=== PATIENT | male | born 2000 ===

== ENCOUNTER 2021-12-11 17:34 | Emergency (ER) | payer OTHER, SELFPAY ==
[2021-12-11 17:42] VITALS: BP 142/83; PULSE 102; RESP 16; TEMP 36.8; O2SAT 100; BMI 29.8
--- NOTE | 2021-12-11 18:27 | DI.RAD.S_ITS ---
PROCEDURE: XR CHEST 1V INDICATIONS: left sided chest pain TECHNIQUE: One view of the chest was acquired. COMPARISON: None. FINDINGS: Surgical changes and devices: None. Lungs and pleura: Lungs are clear. No pleural effusions or pneumothorax. Mediastinum: Mediastinal contours appear normal. Heart size is normal. Bones and chest wall: No suspicious bony lesions. Overlying soft tissues appear unremarkable. IMPRESSION: No acute cardiopulmonary disease. Dictated by: Elijah Moreno M.D. on 12/11/2021 at 19:00 Approved by: Elijah Moreno M.D. on 12/11/2021 at 19:00
--- NOTE | 2021-12-11 18:30 | ED.HA ---
HPI - Headache <Lilibeth Calderon [facility] - Last Filed: 12/11/21 20:23> General Chief Complaint: Headache Stated Complaint: chets pain, headache all day Time Seen by Provider: 12/11/21 18:16 Mode of arrival: Ambulatory History of Present Illness HPI Narrative: This is a 21-year-old male without any significant medical history who presents to the emergency department complaining of left-sided chest pain which started today with a headache. 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 He denies any injury from this, states that he has had mild left-sided chest pain which is tender to touch, pain with deep inspiration, some mild nausea but none currently, no vomiting, no vision changes, no weakness, no mental status changes. Patient denies any fever, any recent illness, states that he is COVID vaccinated x2, denies any known sick contacts but works in [employer]. Patient states that he has been eating and drinking today, denies any vomiting, diarrhea, states that he has been voiding and has not had any abnormal output. His most bothersome symptoms currently are a headache, and left-sided chest pain which is currently 3/10 but was greater earlier today. He does not currently have a doctor, he has a history of asthma, does not have an albuterol inhaler currently, denies shortness of breath or need for 1, states that he has had chest tightness or rib pain with deep inspiration since he was a child. Patient endorses left-sided ear pain which has been present for the last 2 weeks, and complains of muffled sounds in his left ear, denies any drainage, denies any pain to the ear canal or pinna. Patient denies any runny nose, cough, sore throat, or other signs of illness. Related Data Previous Rx's Medication Instructions Recorded cetirizine 10 mg capsule (All Day 10 mg PO DAILY PRN #20 cap 12/11/21 Allergy (cetirizine)) fluticasone propionate 50 1 spray INTRANASAL BID #16 g 12/11/21 mcg/actuation nasal spray,suspension methocarbamol 500 mg tablet 500 mg PO TID #14 tab 12/11/21 Allergies Allergy/AdvReac Type Severity Reaction Status Date / Time No Known Drug Allergies Allergy Verified 12/11/21 17:42 Review of Systems <GREGOR Correa - Last Filed: 12/11/21 20:23> Review of Systems Narrative: General: denies fever, chills, malaise, sweats, fatigue Head/Neck: Endorses having a headache, denies any neck pain, dizziness Eyes: denies visual changes, eye pain or discharge Ears: Complains of left-sided ear pain and fullness for about 2 weeks Cardio: denies chest pain, palpitations, edema Respiratory: denies dyspnea, cough, orthopnea GI: denies abdominal pain, nausea, vomiting, or diarrhea : denies dysuria, hematuria, urinary retention, frequency or incontinence MSK: denies joint pain, muscle weakness Skin: denies rash, itching, skin lesions or other Neuro: denies numbness, tingling Patient History <GREGOR Correa - Last Filed: 12/11/21 20:23> Social History Smoking Status: Current every day smoker Smoking Status: Current every day smoker tobacco type: cigarettes, e-cigarettes and vaping alcohol intake frequency: 0-2 drinks per day Substance Use Type: marijuana Exam <GREGOR Correa - Last Filed: 12/11/21 20:23> Narrative Exam Narrative: Independently reviewed vitals signs and nursing notes. General: cooperative, comfortable, in no acute distress, well developed and well groomed Head: atraumatic, symmetrical facial expressions Neck: supple, atraumatic, without lymphadenopathy. Eyes: pupils equal round and reactive, EOMI, conjunctiva normal Ears: Right ear with normal TM, normal light reflex and left TM is bulging, clear fluid behind TM, positive light reflex and landmarks visible, no erythema or discharge. Nose: nares patent, no rhinorrhea Mouth/Throat: uvula midline, moist mucus membranes Cardiovascular: regular rate and rhythm, no peripheral edema, warm extremities Respiratory: normal effort, able to speak in complete sentences, no audible wheezing, stridor, or rales. No retractions or tachypnea. GI: abdomen soft, nontender to palpation, nondistended, no masses, no exquisite tenderness with exam, without guarding or rebound. MSK: moves all extremities, ambulatory w/steady gait, neurovascularly intact, no weakness Skin: brisk capillary refill, no rash, no erythema Neuro: normal speech and cognition, A&O x3, normal tone Psych: mental status is grossly normal, congruent mood, normal affect, pleasant and cooperative Initial Vital Signs Initial Vital Signs: Vital Signs Temperature 98.3 F 12/11/21 17:42 Pulse Rate 102 H 12/11/21 17:42 Respiratory Rate 16 12/11/21 17:42 Blood Pressure 142/83 H 12/11/21 17:42 Pulse Oximetry 100 12/11/21 17:42 <Kristy Fleming DO - Last Filed: 12/16/21 07:54> Initial Vital Signs Initial Vital Signs: Vital Signs Temperature 98.3 F 12/11/21 17:42 Pulse Rate 102 H 12/11/21 17:42 Respiratory Rate 16 12/11/21 17:42 Blood Pressure 142/83 H 12/11/21 17:42 Pulse Oximetry 100 12/11/21 17:42 Course <GREGOR Correa - Last Filed: 12/11/21 20:23> Orders Ordered: Discontinued Medications Acetaminophen (Acetaminophen 325 Mg Tablet) 975 mg PO NOW ONE Stop: 12/11/21 18:28 Last Admin: 12/11/21 18:38 Dose: 975 mg Documented by: NADJA Ketorolac Tromethamine (Ketorolac 30 Mg/Ml Vial) 15 mg IM NOW ONE Stop: 12/11/21 18:28 Last Admin: 12/11/21 18:39 Dose: 15 mg Documented by: NADJA Vital Signs Vital signs: Vital Signs - 8 hr 12/11/21 17:42 12/11/21 19:15 12/11/21 20:01 Temperature 98.3 F Pulse Rate 102 H 77 74 Respiratory Rate 16 Blood Pressure 142/83 H 123/59 L 125/72 Pulse Oximetry 100 99 99 <Kristy Fleming DO - Last Filed: 12/16/21 07:54> Orders Ordered: Discontinued Medications Acetaminophen (Acetaminophen 325 Mg Tablet) 975 mg PO NOW ONE Stop: 12/11/21 18:28 Last Admin: 12/11/21 18:38 Dose: 975 mg Documented by: NADJA Ketorolac Tromethamine (Ketorolac 30 Mg/Ml Vial) 15 mg IM NOW ONE Stop: 12/11/21 18:28 Last Admin: 12/11/21 18:39 Dose: 15 mg Documented by: NADJA Vital Signs Vital signs: Vital Signs - 8 hr 12/11/21 17:42 12/11/21 19:15 12/11/21 20:01 Temperature 98.3 F Pulse Rate 102 H 77 74 Respiratory Rate 16 Blood Pressure 142/83 H 123/59 L 125/72 Pulse Oximetry 100 99 99 MDM - Headache <GREGOR Correa - Last Filed: 12/11/21 20:23> Lab Data Result diagrams: 12/11/21 19:01 12/11/21 19:01 Labs: Lab Results 12/11/21 12/11/21 12/11/21 Range/Units 17:55 19:01 19:01 WBC 5.7 (4.5-11.0) X10^3/uL RBC 4.19 L (4.5-5.9) X10^6/uL Hgb 13.9 (13.5-17.5) g/dL Hct 39.5 L (41-53) % MCV 94.2 (80-100) fL MCH 33.1 (26-34) PG MCHC 35.2 (30-36) % RDW 12.9 (11.6-14.8) % Plt Count 201 (150-400) X10^3/uL Neut % (Auto) 57.8 (50-75) % Lymph % (Auto) 32.5 (25-40) % [place] % (Auto) 7.5 (3-14) % Eos % (Auto) 1.7 L (2-4) % Baso % (Auto) 0.5 (0-2) % Neut # (Auto) 3300 (1789-2002) /uL Lymph # (Auto) 1800 (5667-8764) /uL [place] # (Auto) 400 (0-900) /uL Eos # (Auto) 100 (0-450) /uL Baso # (Auto) 0 (0-100) /uL Sodium 139 (137-145) mmol/L Potassium 3.8 (3.4-5.1) mmol/L Chloride 103 (98-107) mmol/L Carbon Dioxide 26 (22-32) mmol/L BUN 19 (9-20) mg/dL Creatinine 0.93 (0.66-1.25) mg/dL Estimated GFR > 60 (>60) mL/min BUN/Creatinine Ratio 20.4 (6-22) Glucose 96 (70-100) mg/dL Calcium 9.2 (8.4-10.2) mg/dL Total Bilirubin 0.9 (0.2-1.3) mg/dL AST 35 (17-59) IU/L ALT 25 (<50) IU/L Alkaline Phosphatase 68 (38-126) U/L Total Creatine Kinase 363 H (55-170) U/L CK-MB (CK-2) 1.40 (<2.37) ng/mL CK-MB (CK-2) Rel Index 0.4 L (1.5-5.0) % Troponin I < 0.012 (0.01-0.034) ng/mL Total Protein 7.7 (6.3-8.2) g/dL Albumin 4.9 (3.5-5.0) g/dL Globulin 2.8 (1.7-4.1) g/dL Albumin/Globulin Ratio 1.8 (1.0-2.8) SARS-CoV-2 (PCR) Negative (Negative) Imaging Data Chest x-ray: Radiologist's Impression: PROCEDURE:? XR CHEST 1V ? INDICATIONS:? left sided chest pain ? TECHNIQUE:? One view of the chest was acquired.? ? COMPARISON:? None. ? FINDINGS:? ? Surgical changes and devices:? None.? ? Lungs and pleura:? Lungs are clear.? No pleural effusions or pneumothorax.? ? Mediastinum:? Mediastinal contours appear normal.? Heart size is normal.? ? Bones and chest wall:? No suspicious bony lesions.? Overlying soft tissues appear unremarkable.? ? IMPRESSION:? No acute cardiopulmonary disease. ? ? Dictated by: Elijah Moreno M.D. on 12/11/2021 at 19:00 ? ? Approved by: Elijah Moreno M.D. on 12/11/2021 at 19:00 ? ECG Data Interpretation: EKG independently reviewed by myself and Dr. Salguero which reveals normal sinus rhythm at 87 bpm with regular axis and intervals. No STEMI, ST segment changes, arrhythmia, or acute ischemic changes. 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 Endorses a history of vasovagal episodes in the past, he also endorses his left ear has been muffled clogs banding the last 2 weeks. He denies any fever, shortness of breath, wheezing, abdominal pain, back pain, or other symptom. He states he works hard and had a lot of physical activity today. When he stood up after the syncopal episode he felt lightheaded but then that improved and he then had left-sided chest pain which is reproducible with palpation, tenderness to touch and deep inspiration, and he has had a headache since this happened. He states that he has been eating and drinking all day without feeling dehydrated. He endorses having urine output today. His lab work is mostly unremarkable, no leukocytosis, hemoglobin of 13.9, hematocrit 39.5, denies any bleeding anywhere electrolyte are within normal ranges, no elevation to his liver enzymes, troponin is 0.12, CK is 363. COVID was negative. Chest x-ray shows no acute cardiopulmonary disease. Patient denies any trauma, this is most likely a muscle strain after a vasovagal episode. Patient was bearing down while he was squatted working on the toilet, he states he felt a hot flush and then he hit the floor. There are no emergent causes to his symptoms found on his workup today. This is most likely a strained muscle. He has a left middle ear effusion with muffled hearing, clear fluid behind TM which appears to be bulging, positive light reflex and landmarks. Encouraged him to use Flonase and cetirizine daily for the next week to see if this improves. Encouraged him to establish primary care with a provider at [facility] or to find 1 on his own and follow-up with them after this visit. He was given contact information with his discharge paper for a primary care provider. He is given strict return precautions for worsening of these symptoms, or for persistent symptoms with nausea, vomiting, sweating, fever or other symptom. Multiple causes of chest pain considered including OH, PE, pneumothorax, pneumonia, aortic dissection, and pleurisy. Patient reports no radiation, no diaphoresis, no provocation with exertion, and no vomiting. Patient is appropriate and amenable to discharge home. Vital signs are stable on repeat examination is unremarkable. Patient has been informed of results. Patient has been given strict return to ER precautions for any new or worsening symptoms. Patient understands to follow up closely with outpatient providers as instructed. Patient understands plan and agrees to discharge home. All questions and concerns answered at this time. <Kristy Fleming DO - Last Filed: 12/16/21 07:54> Lab Data Labs: Lab Results 12/11/21 12/11/21 12/11/21 Range/Units 17:55 19:01 19:01 WBC 5.7 (4.5-11.0) X10^3/uL RBC 4.19 L (4.5-5.9) X10^6/uL Hgb 13.9 (13.5-17.5) g/dL Hct 39.5 L (41-53) % MCV 94.2 (80-100) fL MCH 33.1 (26-34) PG MCHC 35.2 (30-36) % RDW 12.9 (11.6-14.8) % Plt Count 201 (150-400) X10^3/uL Neut % (Auto) 57.8 (50-75) % Lymph % (Auto) 32.5 (25-40) % [place] % (Auto) 7.5 (3-14) % Eos % (Auto) 1.7 L (2-4) % Baso % (Auto) 0.5 (0-2) % Neut # (Auto) 3300 (5646-4257) /uL Lymph # (Auto) 1800 (2077-5033) /uL [place] # (Auto) 400 (0-900) /uL Eos # (Auto) 100 (0-450) /uL Baso # (Auto) 0 (0-100) /uL Sodium 139 (137-145) mmol/L Potassium 3.8 (3.4-5.1) mmol/L Chloride 103 (98-107) mmol/L Carbon Dioxide 26 (22-32) mmol/L BUN 19 (9-20) mg/dL Creatinine 0.93 (0.66-1.25) mg/dL Estimated GFR > 60 (>60) mL/min BUN/Creatinine Ratio 20.4 (6-22) Glucose 96 (70-100) mg/dL Calcium 9.2 (8.4-10.2) mg/dL Total Bilirubin 0.9 (0.2-1.3) mg/dL AST 35 (17-59) IU/L ALT 25 (<50) IU/L Alkaline Phosphatase 68 (38-126) U/L Total Creatine Kinase 363 H (55-170) U/L CK-MB (CK-2) 1.40 (<2.37) ng/mL CK-MB (CK-2) Rel Index 0.4 L (1.5-5.0) % Troponin I < 0.012 (0.01-0.034) ng/mL Total Protein 7.7 (6.3-8.2) g/dL Albumin 4.9 (3.5-5.0) g/dL Globulin 2.8 (1.7-4.1) g/dL Albumin/Globulin Ratio 1.8 (1.0-2.8) SARS-CoV-2 (PCR) Negative (Negative) Discharge Plan Departure Patient Disposition: Home Clinical Impression: Vaso vagal episode, Acute costochondritis Headache Qualifiers: Headache type: unspecified Headache chronicity pattern: acute headache Intractability: not intractable Qualified Code(s): R51.9 - Headache, unspecified Instructions: DI for Costochondritis, DI for Headache Activity Restrictions/Additional Instructions: *You have been diagnosed with a headache, a left middle ear effusion, intercostal pain and a vasovagal episode. Please establish care with a primary care provider at the phone number listed below these instructions. Please try taking allergy medicine and/or Flonase to help improve your left ear effusion. For your headache, please take Tylenol, ibuprofen, and Benadryl at bedtime to help improve your symptoms. They antihistamine may help decrease some of the pressure in your middle ear. Please return to the emergency department if this continues happening, please focus on hydration, and a healthy oral intake. If your symptoms have any worsening, please return to the emergency department. I have called in some muscle relaxers for you to see if this helps improve some your pain. They will make you sleepy so do not take them before work or driving *What to do: *Please continue to take your regular medications as directed. [x ] New medication prescriptions sent to your pharmacy: [ [facility]] [ ] New medication written as a paper prescription [ ] No new medications given *Please follow up with your primary care provider in 2-3 days, call for an appointment. Let them know you were seen in the Emergency Department and that we asked that you be seen for follow-up. We will electronically transmit a record of today's note if your PCP is in our system *If you do not have a primary care provider please contact [phone] to establish care with one of the [facility] primary care providers. *Return to Emergency Department if you should have any new, worsening or concerning symptoms, such as [fever greater than 101F, chills, worsening pain, persistent vomiting or other bothersome symptoms] Prescriptions: New methocarbamol 500 mg tablet 500 mg PO TID Qty: 14 0RF All Day Allergy (cetirizine) 10 mg capsule 10 mg PO DAILY PRN (Reason: allergy symptoms) Qty: 20 0RF fluticasone propionate 50 mcg/actuation spray,suspension 1 spray intranasal BID Qty: 16 0RF Rx Instructions: administer into each nostril <Kristy Fleming, - Last Filed: 12/16/21 07:54> Cosign ED Attending Damionature Attestation: I was immediately available in the department for consultation. Documentation has been reviewed. I agree with assessment and plan.
[2021-12-11] MEDS: ACETAMINOPHEN 325 MG TABLET 975 MG PO (18:38)
[2021-12-11] MEDS: KETOROLAC 30 MG/ML VIAL 15 MG IM (18:39)
[2021-12-11 19:08] LABS: Add Manual Diff / Slide Review NO; Basophils Absolute Auto 0 /uL (0-100); Basophils Percent Auto 0.5 % (0-2); Eosinophils Absolute Auto 100 /uL (0-450); Eosinophils Percent Auto 1.7 % (2-4); Hematocrit 39.5 % (41-53); Hemoglobin 13.9 g/dL (13.5-17.5); Lymphocytes Absolute Auto 1800 /uL (1100-4500); Lymphocytes Percent Auto 32.5 % (25-40); Mean Corpuscular HGB Conc 35.2 % (30-36); Mean Corpuscular Hemoglobin 33.1 PG (26-34); Mean Corpuscular Volume 94.2 fL (80-100); Monocytes Absolute Auto 400 /uL (0-900); Monocytes Percent Auto 7.5 % (3-14); Neutrophils Absolute Auto 3300 /uL (1500-7000); Neutrophils Percent Auto 57.8 % (50-75); Platelet Count 201 X10^3/uL (150-400); Red Blood Cell Count 4.19 X10^6/uL (4.5-5.9); Red Cell Distribution Width 12.9 % (11.6-14.8); White Blood Cell Count 5.7 X10^3/uL (4.5-11.0)
[2021-12-11 19:15] VITALS: BP 123/59; PULSE 77; O2SAT 99
[2021-12-11 19:20] LABS: Alanine Aminotransferase 25 IU/L (<50); Albumin 4.9 g/dL (3.5-5.0); Albumin Globulin Ratio 1.8 (1.0-2.8); Alkaline Phosphatase 68 U/L (38-126); Aspartate Aminotransferase 35 IU/L (17-59); BUN Creatinine Ratio 20.4 (6-22); Bilirubin Total 0.9 mg/dL (0.2-1.3); Blood Urea Nitrogen 19 mg/dL (9-20); Calcium 9.2 mg/dL (8.4-10.2); Carbon Dioxide 26 mmol/L (22-32); Chloride 103 mmol/L (98-107); Creatine Kinase 363 U/L (55-170); Estimated Glomerular Filt Rate > 60 mL/min (>60); Globulin 2.8 g/dL (1.7-4.1); Glucose 96 mg/dL (70-100); HEMOLYSIS < 15 (0-50); Potassium 3.8 mmol/L (3.4-5.1); Sodium 139 mmol/L (137-145); Total Protein 7.7 g/dL (6.3-8.2)
[2021-12-11 19:32] LABS: Troponin I < 0.012 ng/mL (0.01-0.034)
[2021-12-11 19:35] LABS: CKMB % Relative Index 0.4 % (1.5-5.0)
[2021-12-11 19:39] LABS: COVID19 -Nasal RAPID Negative (Negative)
[2021-12-11 20:01] VITALS: BP 125/72; PULSE 74; O2SAT 99
== END 2021-12-11 20:02 | disposition home or self-care (01) ==
PROVIDERS: Emergency Medicine; Emergency Provider Nurse Practitioner Critical Care Medicine
DX: R55 Syncope and collapse (principal); M94.0 Chondrocostal junction syndrome [Tietze]; R51.9 Headache, unspecified; R07.9 Chest pain, unspecified; Z20.822 Contact with and (suspected) exposure to COVID-19
CPT/HCPCS: 36415; 71045; 80053; 82550; 82553; 84484; 85025; 87635; 93005; 93010; 96372; 99283; 99284; C9803; J1885